=== PATIENT | male | born 1990 ===

== ENCOUNTER 2017-10-11 18:08 | Emergency (ER) | payer BC ==
--- NOTE | 2017-10-11 18:19 | EDM.PDOC ---
ED HPI GENERAL MEDICAL PROBLEM - General Chief Complaint: General Stated Complaint: anxiety Time Seen by Provider: 10/11/17 18:08 Source of Information: Reports: Patient, Significant Other History Limitations: Reports: No Limitations - History of Present Illness INITIAL COMMENTS - FREE TEXT/NARRATIVE: Patient was brought to the emergency room by private automobile by his significant other for evaluation of nonspecific 7/10 sharp left-sided chest pain , which lasted for about 3-5 minutes. He did have some mild nonspecific nausea without emesis, hot diaphoresis, diffuse paresthesias, double vision, dizziness , and admits to some hyperventilation. Chest pain did not radiate and is similar to previous episodes that he has had in the past, including while having sex, etc. The patient has not been taking any medications for his anxiety and depression for several years and does admit to increased stressors in the last 3 weeks, including possible of his significant other. He denies any suicidal or homicidal thoughts. The patient denies any chest pressure , heart flutter, orthostasis, orthopnea, paresthesias, recent decreased exercise tolerance, or any other anginal-type symptoms. No recent history of abdominal pain, heartburn, nausea, diarrhea, melena, gross hematochezia, or any food intolerance, including fatty foods, etc.. The patient also denies any recent fever, cough, wheezing, dyspnea, etc.. No history of recent headaches, other visual changes, change in mental status, or other change in neurological status. Onset: Today, Sudden Onset Date: 10/11/17 Onset Time: 16:15 Duration: Resolved Prior to Arrival Location: Reports: Chest. Denies: Head, Face, Neck, Abdomen, Back, Pelvis, Upper Extremity, Left, Upper Extremity, Right, Lower Extremity, Left, Lower Extremity, Right, Generalized, Radiates to, Other Quality: Reports: Same as Previous Episode, Sharp Severity: Moderate Improves with: Reports: None Worsens with: Reports: None Context: Reports: Other (As above). Denies: Lifting, Sick Contact, Trauma Associated Symptoms: Reports: Chest Pain, Diaphoresis, Nausea/Vomiting (As above ). Denies: Confusion, Cough, Fever/Chills, Headaches, Loss of Appetite, Malaise , Seizure, Shortness of Breath, Syncope, Weakness Treatments COMMUNITY DEVELOPMENT OFFICER: Reports: Other (see below) (None) - Related Data Allergies Allergy/AdvReac Type Severity Reaction Status Date / Time amoxicillin Allergy Hives Verified 10/11/17 18:46 Home Meds: Home Meds . [No Known Home Meds] 10/11/17 [History] Past Medical History Cardiovascular History: Reports: None, Other (See Below). Denies: Aneurysm, Arrhythmia, Blood Clots/VTE/DVT, CAD, Heart Murmur, High Cholesterol, Hypertension, Syncope Other Cardiovascular History: Does not know his cholesterol status. Gastrointestinal History: Reports: GERD Psychiatric History: Reports: Addiction, Anxiety, Depression, Panic Attack. Denies: Abuse, Victim of, ADD, ADHD, PTSD, Suicide Attempt, Suicidal Ideation Social & Family History - Tobacco Use Smoking Status *Q: Current Every Day Smoker Tobacco Use Within Last Twelve Months: Cigarettes Years of Tobacco use: 8 Packs/Tins Daily: 1 Packs/Tins Daily Comment: Started smoking at age 19 with maximum use of 2 packs per day. Used Tobacco, but Quit: No Smoking Cessation Information Provided To Patient: Yes Second Hand Smoke Exposure: Yes Source of Second Hand Smoke Exposure: Significant other Second Hand Smoke Education Provided: Yes - Caffeine Use Caffeine Use: Reports: Coffee (10 cups 2 times per week), Soda (6 sodas per week any), Tea (1 glass 6 times per week). Denies: Energy Drinks - Alcohol Use Alcohol Use History: Yes Days Per Week of Alcohol Use: 5 Number of Drinks Per Day: 4 Number of Drinks Per Day Comment: Usually beer. No previous DWIs, problems with alcohol abuse, etc. Total Drinks Per Week: 20 Alcohol Use in Last Twelve Months: Yes Alcohol Use Frequency: Socially - Recreational Drug Use Recreational Drug Use: Yes Drug Use in Last 12 Months: Yes Recreational Drug Type: Reports: Cocaine (Experimental with a total of 3 times of use between ages 18 and 20.), LSD (Acid) (Specimen amended 1 between ages 18 and 20. Any), Marijuana/Hashish (Once every 3 months). 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 ED EXAM, GENERAL - Physical Exam Exam: See Below Exam Limited By: No Limitations General Appearance: Alert, WD/WN, No Apparent Distress, Anxious (Moderate) Head: Atraumatic, Normocephalic. No: Facial Swelling, Facial Tenderness, Sinus Tenderness Neck: Normal Inspection, Supple, Non-Tender, Full Range of Motion. No: Carotid Bruit, Lymphadenopathy (L), Lymphadenopathy (R), Thyromegaly Respiratory/Chest: No Respiratory Distress, Lungs Clear, Normal Breath Sounds, No Accessory Muscle Use, Chest Non-Tender. No: Pleural Rub, Retractions Peripheral Pulses: 2+: Radial (L), Radial (R), Dorsalis Pedis (L), Dorsalis Pedis (R) GI/Abdominal: Normal Bowel Sounds, Soft, Non-Tender, No Organomegaly, No Distention, No Abnormal Bruit, No Mass. No: Guarding (Male) Exam: Deferred Rectal (Males) Exam: Deferred Back Exam: Normal Inspection, Full Range of Motion. No: CVA Tenderness (L), CVA Tenderness (R), Muscle Spasm Extremities: Normal Inspection, Normal Range of Motion, Non-Tender, No Pedal Edema, Normal Capillary Refill. No: Jaclyn's Sign Neurological: Alert, Oriented, CN II-XII Intact, Normal Cognition, Normal Gait, Normal Reflexes (Negative Babinski's), No Motor/Sensory Deficits Psychiatric: Anxious (Moderate), Depressed Mood (Mild to moderate with adequate eye contact). No: Flat Affect, Tearful Skin Exam: Warm, Dry, Intact, Normal Color, No Rash, Stud(s), Tattoo(s) ( Multiple). No: Diaphoretic, Ecchymosis, Petechiae, Wound/Incision Lymphatic: No Adenopathy Course - Vital Signs Last Recorded V/S: Last Vital Signs Temp 36.9 C 10/11/17 18:10 Pulse 76 10/11/17 18:20 Resp 15 10/11/17 18:39 BP 125/84 10/11/17 18:39 Pulse Ox 97 10/11/17 18:39 Vital Signs - 24 hr 10/11/17 10/11/17 10/11/17 18:10 18:20 18:39 Temperature [ 36.9 C Temporal] Pulse, 75 76 Peripheral [ Brachial] Respiratory 17 17 15 Rate Blood Pressure 125/84 [Left Upper Arm ] Blood Pressure 135/89 119/92 H [Upper Arm] O2 Sat by Pulse 98 97 97 Oximetry - Orders/Labs/Meds Orders: Active Orders 24 hr Category Date Time Status Cardiac Monitoring [RC] . DIRECTED Care 10/11/17 18:10 Active Obtain Past Medical Record [OM.PC] Routine Oth 10/11/17 18:19 Active Labs: None Meds: None - Radiology Interpretation Free Text/Narrative:: monitor and storage bin tender shows normal sinus rhythm in the 70s with no ectopy or arrhythmia. Departure - Departure Time of Disposition: 18:50 Disposition: Home, Self-Care 01 Clinical Impression: Panic attack, Mixed anxiety depressive disorder, Tobacco abuse counseling, Illicit drug use, continuous, Peptic reflux disease - Discharge Information *PRESCRIPTION DRUG MONITORING PROGRAM REVIEWED*: Not Applicable *COPY OF PRESCRIPTION DRUG MONITORING REPORT IN PATIENT MICKI: Not Applicable Referrals: PCP,Unknown [Primary Care Provider] - Forms: ED Department Discharge Additional Instructions: 1. Follow-up with your new regular provider tomorrow as already scheduled for reevaluation and discussion of today's emergency room visit and recommendations as below. 2. Discuss possibility of initiating counseling, medications for your current stressors/depression, etc. 3. Discuss recent atypical chest pain further heart workup per their discussion and your clinical course 4. Stop all tobacco and illicit drug use PHYLLIS as directed/per provided information and consider contacting Quit LIne, etc.. 5. Immediately after this visit verify that your cellular telephone's voicemail has been activated and is empty. Also verify that your home telephone 's answering machine is operating properly and has space to receive messages. Note that it is sometimes necessary for us to be able to contact you at a later date to discuss your medical care. - Problem List & Annotations (1) Panic attack SNOMED Code(s): 012638242 Code(s): F41.0 - PANIC DISORDER [EPISODIC PAROXYSMAL ANXIETY] Status: Acute Priority: High Onset Date: 10/11/17 Annotation/Comment:: Panic attack today with hyperventilation and atypical chest pain-type symptoms with symptoms completely resolved at time of arrival to our emergency room. Various therapeutic options were discussed with the patient, including EKG, complete heart workup, hospitalization for observation, etc. with the patient wishing to delay any further aggressive workup at this time. He does have a follow-up appointment with his new primary care provider at the [facility] in [place] tomorrow. Further cardiac workup depending on his clinical course. (2) Mixed anxiety depressive disorder SNOMED Code(s): 119556911 Code(s): F41.8 - OTHER SPECIFIED ANXIETY DISORDERS Status: Chronic Priority: Medium Annotation/Comment:: Long history of anxiety depression disorder with distant medical therapy. Emotional support was provided. The patient and his significant other were counseled on the importance of initiating medical therapy, counseling, and the spiritual aspects of his depression. The patient did not wish me to start medications today. Close follow -up by his regular provider as per discharge instructions. (3) Tobacco abuse counseling SNOMED Code(s): 049500693, 711403709, 866627061 Code(s): Z71.6 - TOBACCO ABUSE COUNSELING Status: Chronic Priority: Medium Annotation/Comment:: Tobacco cessation strongly encouraged with information provided at discharge. (4) Illicit drug use, continuous SNOMED Code(s): 412262832 Code(s): F19.90 - OTHER PSYCHOACTIVE SUBSTANCE USE, UNSPECIFIED, UNCOMPLICATED Status: Chronic Priority: Medium Annotation/Comment:: Discontinuation of marijuana use PHYLLIS was extensively discussed, including the effects of marijuana on his emotions, etc. (5) Peptic reflux disease SNOMED Code(s): 300601708 Code(s): K21.9 - GASTRO-ESOPHAGEAL REFLUX DISEASE WITHOUT ESOPHAGITIS Status: Chronic Priority: Medium Annotation/Comment:: Stable by history with no medications. Consider GI workup depending on his clinical course. - Problem List Review Problem List Initiated/Reviewed/Updated: Yes - My Orders Last 24 Hours: My Active Orders 10/11/17 18:10 Cardiac Monitoring [RC] . DIRECTED 10/11/17 18:19 Obtain Past Medical Record [OM.PC] Routine - Assessment/Plan Last 24 Hours: My Active Orders 10/11/17 18:10 Cardiac Monitoring [RC] . DIRECTED 10/11/17 18:19 Obtain Past Medical Record [OM.PC] Routine Assessment:: As above Plan: As above. Extensive precautions were given to the patient and his significant other, who are in agreement with the treatment plan. See Patient Instructions for further treatment and plan.
== END 2017-10-11 18:50 | disposition home or self-care (01) ==
LOC: LL.ED 18:08
DX: F41.0 Panic disorder [episodic paroxysmal anxiety] (principal); F41.8 Other specified anxiety disorders; Z71.6 Tobacco abuse counseling; F19.90 Other psychoactive substance use, unspecified, uncomplicated; K21.9 Gastro-esophageal reflux disease without esophagitis; F17.210 Nicotine dependence, cigarettes, uncomplicated; Z88.1 Allergy status to other antibiotic agents
CPT/HCPCS: 99283